=== PATIENT | male | born 1965 | race Hispanic/Latino ===

== ENCOUNTER 2024-10-20 10:24 | Outpatient (CLI) | payer OTHER | END 2024-10-20 10:25 | disposition home or self-care (01) | LOC: SCSMRI 10:24 | PROVIDERS: ATTEND Family Medicine | DX: S46.211D Strain of muscle, fascia and tendon of other parts of biceps, right arm, subsequent encounter (principal); S53.431D Radial collateral ligament sprain of right elbow, subsequent encounter; M67.823 Other specified disorders of tendon, right elbow ==